=== PATIENT | female | born 1970 | race Caucasian/White ===

== ENCOUNTER 2025-11-07 00:54 | Emergency (ER) | payer OTHER, SELFPAY ==
[2025-11-07 00:57] VITALS: PULSE 84; O2SAT 96; BMI 26.3
[2025-11-07 01:03] VITALS: BP 165/90; TEMP 36.6
--- NOTE | 2025-11-07 01:08 | ED.GENADUL1 ---
HPI HPI - General Adult General Chief complaint: Shortness of Breath/Dyspnea Stated complaint: SHORTNESS OF BREATH Time Seen by Provider: 11/07/25 01:04 Source: patient Mode of arrival: walk-in History of Present Illness HPI narrative: sensation of fullness in her throat. Able to drink H20 and states this makes it feel better. Not short of breath and her lungs feel normal. Points to her neck and states the sensation is here. Similar episodes in the past. No sore throat or chest pain No fever Related Data Home Medications ?Medication ?Instructions ?Recorded ?Confirmed estradiol 0.025 mg/24 hr weekly 11/07/25 transdermal patch ferrous sulfate 325 mg (65 mg mg 11/07/25 iron) tablet (FeroSul) losartan 25 mg tablet mg 11/07/25 metoprolol succinate 50 mg mg PO 11/07/25 tablet,extended release 24 hr Allergies Allergy/AdvReac Type Severity Reaction Status Date / Time No Known Drug Allergies Allergy Verified 11/07/25 01:01 Review of Systems ROS Status of ROS 10 or more systems reviewed and unremarkable except as noted in history and below PFSH PFSH Social History Little interest or pleasure in doing things: not at all Feeling down, depressed, or hopeless: not at all Exam Constitutional Vital Signs, click to edit/add: Last Vital Signs Temp 97.8 F 11/07/25 01:03 Pulse 84 11/07/25 00:57 Resp 16 11/07/25 00:57 BP 165/90 H 11/07/25 01:03 Pulse Ox 96 11/07/25 00:57 O2 Del Method Room Air 11/07/25 00:57 Common normals: no apparent distress, average body habitus, oriented x3, no limitations, healthy appearing, alert and well nourished [facility] Common normals: normocephalic and head/scalp atraumatic Neck & C-Spine Common normals: full ROM Other: neg stridor Respiratory Common normals: normal respiratory effort, no retractions, no use of accessory muscles and clear to auscultation bilaterally Cardio Common normals: regular rate, regular rhythm, S1 normal heart sound and S2 normal heart sound GI Common normals: Normal to inspection, nondistended, normoactive bowel sounds present, soft to palpation and non-tender Extremity Common normals: normal to inspection and full ROM Neuro Common normals: oriented x3, CN's II-XII intact bilaterally, moves all extremities and no focal motor deficits Psych Appearance: grossly normal Course Vital Signs Vital signs: Vital Signs Pulse Rate 84 11/07/25 00:57 Respiratory Rate 16 11/07/25 00:57 Pulse Oximetry 96 11/07/25 00:57 Oxygen Delivery Method Room Air 11/07/25 00:57 Temperature 97.8 F 11/07/25 01:03 Pulse Rate 84 11/07/25 00:57 Respiratory Rate 16 11/07/25 00:57 Blood Pressure 165/90 H 11/07/25 01:03 Pulse Oximetry 96 11/07/25 00:57 Oxygen Delivery Method Room Air 11/07/25 00:57 Medical Decision Making MDM Narrative Medical decision making narrative: patient presents with a sensation that there is a fullness in her throat and that it is closing off. states feels like she can't swallow but she is easily able to drink H20 while I observed and states it makes it feel better. Oral pharynx is normal. cxray and soft tissue xray per my review are WNL. Patient continued to complain of a sensation of fullness or swelling in her throat. CT soft tissue neck neg as well. Patient reasurred. Not certain of cause of her symptoms but could be anxiety. Advised to follow up with her doctor to continue her workup Lab Data Labs: Lab Results 11/07/25 Range/Units 01:15 WBC 8.4 (4.0-11.0) 10^3/uL RBC 4.10 L (4.20-5.40) 10^6/uL Hgb 14.5 (12.0-16.0) g/dL Hct 41.0 (36.0-48.0) % MCV 100.0 H (81.0-99.0) fL MCH 35.4 H (26.7-34.0) pg MCHC 35.4 H (29.9-35.2) g/dL RDW 11.5 (11.0-15.0) % Plt Count 228 (150-450) 10^3/uL MPV 9.7 (9.5-13.5) fL Neut % (Auto) 29.1 L (43.0-75.0) % Lymph % (Auto) 58.3 (20.5-60.0) % Craig % (Auto) 7.4 (1.7-12.0) % Eos % (Auto) 4.4 (0.9-7.0) % Baso % (Auto) 0.7 (0.2-2.0) % Neut # (Auto) 2.5 (1.4-6.5) 10^3/uL Lymph # (Auto) 4.9 H (1.2-3.8) 10^3/uL Craig # (Auto) 0.6 (0.3-0.8) 10^3/uL Eos # (Auto) 0.4 (0.0-0.7) 10^3/uL Baso # (Auto) 0.1 (0.0-0.1) 10^3/uL Abs Immat Gran (auto) 0.01 (0.00-0.03) 10^3/uL Imm/Tot Granulo (auto) 0.1 (0.0-0.5) % Sodium 142 (136-145) mmol/L Potassium 3.6 (3.5-5.1) mmol/L Chloride 105 (98-107) mmol/L Carbon Dioxide 27.4 (21.0-32.0) mmol/L Anion Gap 13.2 BUN 15.0 (7.0-18.0) mg/dL Creatinine 1.00 (0.55-1.02) mg/dL Est GFR ( Amer) >60 (>=60 mL/min/1.73m^2) Est GFR (Non-Af Amer) 57 L (>=60 mL/min/1.73m^2) BUN/Creatinine Ratio 15.0 Glucose 124 H (74-106) mg/dL Calcium 10.0 (8.5-10.1) mg/dL Troponin I High Sens 6.1 (4.0-51.3) pg/mL Discharge Plan Discharge Chief Complaint: Shortness of Breath/Dyspnea Clinical Impression: Globus sensation Patient Disposition: Home, Self-Care Prescriptions / Home Meds: No Action metoprolol succinate 50 mg tablet extended release 24 hr PO estradiol 0.025 mg/24 hr patch weekly ferrous sulfate [FeroSul] 325 mg (65 mg iron) tablet losartan 25 mg tablet Print Language: Yoruba Instructions: Anxiety (ED) Additional Instructions: follow up with your doctor this week for recheck Referrals: Jasmin Cespedes MD [Primary Care Provider] - 1 week
--- NOTE | 2025-11-07 01:11 | XR_ITS ---
The [address] [address] Patient Name: RUSLAN FARAH MRN: [id number] date: 1970 Sex: F Assigned Patient Location: ED.MAIN Current Patient Location: Accession/Order Number: [id number] Exam Date: 11/07/2025 01:25 Report Date: 11/07/2025 08:10 At the request of: MARKY KAUR MD Procedure: XR chest 1V XR chest 1V 11/07/2025 1:30 AM SIGNS AND SYMPTOMS: ^short of breath PROTOCOL: Frontal radiograph of the chest COMPARISON: None FINDINGS: The trachea is midline. The heart and mediastinal structures are within normal limits. There is a 1.2 cm nodular opacity in the right upper lobe. The lung parenchyma is clear otherwise. The bony thorax is intact. Degenerative changes are noted in the thoracic spine. XR/XR chest 1V IMPRESSION: There is a 1.2 cm nodular opacity in the right upper lobe. Follow-up with contrast-enhanced CT of the chest is recommended. The lung parenchyma is clear otherwise. Impression dictated by: Luis Alberto Lane M.D. 11/07/2025 8:10 AM Dictation Location: [place] [address] Electronically authenticated by: [id number] Y Date: 11/07/2025 08:10
--- NOTE | 2025-11-07 01:11 | XR_ITS ---
The [address] [address] Patient Name: RUSLAN FARAH MRN: [id number] date: 1970 Sex: F Assigned Patient Location: ED.MAIN Current Patient Location: Accession/Order Number: [id number] Exam Date: 11/07/2025 01:25 Report Date: 11/07/2025 08:09 At the request of: MARKY KAUR MD Procedure: XR soft tissue neck XR soft tissue neck 11/07/2025 1:31 AM SIGNS AND SYMPTOMS: ^fullness sensation PROTOCOLS: Frontal and lateral radiograph soft tissues of the neck COMPARISON: None FINDINGS: The bones are in anatomic alignment. There is preservation of the vertebral body heights and intervertebral disc spaces. There is no fracture or destructive lesion. The nasopharyngeal, oropharyngeal, hypopharyngeal, glottic, and visualized subglottic airways are within normal limits. No radiopaque foreign body. XR/XR soft tissue neck IMPRESSION: Normal soft tissues of the neck. Impression dictated by: Luis Alberto Lane M.D. 11/07/2025 8:09 AM Dictation Location: [place] [address] Electronically authenticated by: [id number] Y Date: 11/07/2025 08:09
[2025-11-07 01:21] LABS: Hematocrit 41.0 % (36.0-48.0); Hemoglobin 14.5 g/dL (12.0-16.0); Immature Granulocytes Abs Auto 0.01 10^3/uL (0.00-0.03); Immature Granulocytes Pct Auto 0.1 % (0.0-0.5); Lymphocytes Absolute Auto 4.9 10^3/uL (1.2-3.8); Mean Corpuscular HGB Conc 35.4 g/dL (29.9-35.2); Mean Corpuscular Hemoglobin 35.4 pg (26.7-34.0); Mean Corpuscular Volume 100.0 fL (81.0-99.0); Platelet Count 228 10^3/uL (150-450); Red Blood Count 4.10 10^6/uL (4.20-5.40); White Blood Count 8.4 10^3/uL (4.0-11.0)
[2025-11-07 01:38] LABS: Anion Gap 13.2; Blood Urea Nitrogen 15.0 mg/dL (7.0-18.0); Calcium 10.0 mg/dL (8.5-10.1); Carbon Dioxide 27.4 mmol/L (21.0-32.0); Chloride 105 mmol/L (98-107); Estimated GFR (African America >60 (>=60 mL/min/1.73m^2); Estimated GFR (Non-African Ame 57 (>=60 mL/min/1.73m^2); Glucose 124 mg/dL (74-106); Potassium 3.6 mmol/L (3.5-5.1); Sodium 142 mmol/L (136-145)
--- OUTSIDE RECORDS SUMMARY | 2025-11-07 01:53 | XMS_ITS | Clinical Summary ---
Author Organization [facility] Address [address] [place], [place] [address] Care Team Providers Care Brass Finisher Name Role Phone Jasmin Cespedes MD Primary Care Provider [phone] Allergies No known active allergies Medications MedicationSigDispense QuantityRefillsLast FilledStart DateEnd DateStatus metoprolol succinate ER (TOPROL XL) 25 mg 24 hr tablet Take 25 mg by mouth.04/05/2020Active omega-3 acid ethyl esters (LOVAZA) 1 gram capsule Take 3,000 mg by mouth.Active Magnesium Oxide 500 mg cap Take by mouth.Active calcium carbonate (CALTRATE) 600 mg calcium (1,500 mg) tab Take 1 tablet by mouth.Active cyanocobalamin (VITAMIN B-12) 1,000 mcg tab Take 1,000 mcg by mouth.Active glucosamine/msm/chondroitin A (VRLMURDJXAO-WSGQQI-WII ORAL) Take by mouth.Active Cod Liver Oil oil Take by mouth.Active niacin (NIACIN) 100 mg tablet Take by mouth.Active Active Problems No known active problems Social History Tobacco UseTypesPacks/DayYears UsedDateSmoking Tobacco: Every DayCigarettes Smokeless Tobacco: CurrentPHQ-2AnswerDate RecordedPHQ-2 [id number] Deprivation IndexAnswerDate RecordedNational Score (1-100), lower number is lower riskNot on file11/05/2020State Score (1-10), lower number is lower riskNot on file11/05/2020Data from: https://www.neighborhoodatlas.medicine.[facility].edu/. Last address used for calculationNot on file11/05/2020CommentsNoSex and Gender InformationValueDate RecordedSex Assigned at BirthNot on fileLegal Sex Dsctpz6306/27/2019 4:45 PM EDTGender IdentityNot on fileSexual OrientationNot on file Last Filed Vital Signs Vital SignReadingTime TakenCommentsBlood Oeffzyqi057/57004/30/2020 10:41 AM EDT Xpizs7726/01/2020 10:41 AM SLUNgjyjjspgpn98.2 ??C (97.1 ??F)04/30/2020 10:41 AM EDTRespiratory Vqgg415704/30/2020 10:41 AM EDTOxygen Feudwipgqn58%04/30/2020 10:41 AM EDTInhaled Oxygen Concentration--Vvveax47.2 kg (141 lb 9.6 oz)04/30/2020 10:41 AM HKDNrkaxu708.3 cm (5' 0.35 )04/30/2020 10:41 AM EDTBody Mass Index27.33 04/30/2020 10:41 AM EDT Plan of Treatment Health MaintenanceDue DateLast DoneCommentsAnxiety Zqicvilol61/19/1987Depression Yeptweeli22/19/1987HIV Eoftatprp86/19/1987DTaP,Tdap,Td Vaccine (1 - Tdap) 1988Hepatitis B Vaccine (1 of 3 - 19+ 3-dose series)1988Cervical Cancer Ixssitdxd64/19/1990Mammogram Fyogfeern14/19/2009CT Unealujugqne66/19/2014 Cologuard (FIT-DNA)01/18/20144690Dqydesxnqhw55/19/2014Colorectal Cancer Screening 2014Fecal Occult Blood01/18/20142688Aejhaynbtsgcf64/19/2014Pneumococcal Vaccine: 50+ (1 of 1 - PCV)2019Shingrix Vaccine (1 of 2)2019Diabetes Thudsmkfh33, 03/29/2020, 03/29/2020, Additional history exists Lipid Bhapzejwz00Covid-19 Vaccine (1 - 2024- season) 2025Influenza Vaccine (#1)2025Hepatitis C ScreeningCompleted 04/13/2020 Procedures Procedure NamePriorityDate/TimeAssociated DiagnosisCommentsHEP REMOTE PANEL BL Gecxszv83/ 11:45 AM EDT Elevated blood protein COMPREHENSIVE METABOLIC BOHYVQxusxdi77/15/2020 11:45 AM EDT Elevated blood protein from Last 3 Months or Most Recently Relevant to Health Maintenance Results * (ABNORMAL) HEP REMOTE PANEL BL (04/13/2020 11:45 AM EDT)ComponentValueRef RangeTest MethodAnalysis TimePerformed AtPathologist SignatureHep B Core Ab, CxwseQtkuwetsNsszehlt06/16/2020 11:25 AM [facility]TCWex[facility] LaboratoriesHep C Antibody BJDvsjiuofQyshgrmh69/16/2020 11:27 AM EDTCWexner [facility] Center AwsmqczzehvvBLqAkMzntnpwiUehbhfsn72/16/2020 11:25 AM EDTCWexner Medical Center LaboratoriesHep B Surface Ab, QualPositive(A)Trygjkvx34/16/2020 11:26 AM EDT [facility] LaboratoriesComment: These results are consistent with previous exposure and/or immunity to the hepatitis B virus antigen. Specimen (Source)Anatomical Location / LateralityCollection Method / Volume Collection TimeReceived TimeBlood specimen (specimen)BLOOD SPECIMEN / Unknown 04/13/2020 11:45 AM EDT04/13/2020 11:47 AM EDT Narrative Authorizing ProviderResult TypeResult StatusGuerrero Weiss MDLABORATORYFinal ResultPerforming OrganizationAddressCity/State/ZIP CodePhone Number [facility] [address] [place] [address] [facility] [address] [place] [address] * (ABNORMAL) COMP METABOLIC PANEL (04/13/2020 11:45 AM EDT)ComponentValueRef RangeTest MethodAnalysis TimePerformed AtPathologist SignatureProtein, Total 7.86.3 - 8.0 g/dL04/13/2020 1:41 PM EDTCMadison Health Cancer CareAlbumin5.3(H)3.9 - 4.9 g/dL04/13/2020 1:41 PM EDTCMadison Health Cancer XejeRnzhjgw15.18.5 - 10.2 mg/dL04/13/2020 1:41 PM EDTCMadison Health Cancer CareBilirubin, Total0.40.2 - 1.3 mg/dL04/13/2020 1:41 PM [facility] CareAlkaline Apraedhcglr7875 - 123 U/L04/13/2020 1:41 PM [facility] TycoYRK3649 - 35 U/L04/13/2020 1:41 PM [facility] AdnxHzmnvwv054 (H)74 - 99 mg/dL04/13/2020 1:41 PM [facility] Comment: The [place] Diabetes Association (ADA) provides guidance for cutoff values for fasting glucose and random glucose. The ADA defines fasting as no caloric intake for at least 8 hours. Fasting plasma glucose results between 100 to 125 mg/dL indicate increased risk for diabetes (prediabetes). Fasting plasma glucose results greater than or equal to 126 mg/dL meet the criteria for diagnosis of diabetes. In the absence of unequivocal hyperglycemia, results should be confirmed by repeat testing. In a patient with classic symptoms of hyperglycemia or hyperglycemic crisis, random plasma glucose results greater than or equal to 200 mg/dL meet the criteria for diagnosis of diabetes. Reference: Standards of Medical Care in Diabetes 2016, [place] [employer]. Diabetes Care. 2016.39(Suppl 1). NZL062 - 21 mg/dL04/13/2020 1:41 PM [facility] Creatinine0.610.58 - 0.96 mg/dL04/13/2020 1:41 PM [facility] CystGeazxq034926 - 144 mmol/L04/13/2020 1:41 PM [facility] CarePotassium3.83.7 - 5.1 mmol/L04/13/2020 1:41 PM EDT [facility] MfrlDioemcij65589 - 105 mmol/L04/13/2020 1:41 PM [facility] DanrLQ39880 - 30 mmol/L04/13/2020 1:41 PM [facility] CareAnion Gis355 - 18 mmol/L 04/13/2020 1:41 PM [facility] QnhsKVN48(H)7 - 38 U/L 04/13/2020 1:41 PM [facility] CareeGFR->6005 1:41 PM EDMer[facility] Cancer CareeGFR- All Other Races>60.04/13/2020 1:41 PM [facility] CareComment: eGFR (Estimated GFR) Units of measure: mL/min/1.73 meters squared eGFR is derived from the reexpressed MDRD Study equation using the following parameters: serum creatinine, age, gender and race. The creatinine assay has been calibrated to be traceable to IDMS. An eGFR <60 mL/min/1.73m2 for >3 months is consistent with chronic kidney disease. Refer to KDOQI guidelines for clinical interpretation. In patients with unstable renal function, e.g. those with acute kidney injury, the eGFR may not accurately reflect actual GFR. Specimen (Source)Anatomical Location / LateralityCollection Method / Volume Collection TimeReceived TimeBlood specimen (specimen)BLOOD SPECIMEN / Unknown 04/13/2020 11:45 AM EDT04/13/2020 11:47 AM EDT Narrative Authorizing ProviderResult TypeResult StatusGuerrero Weiss MDLABORATORYFinal ResultPerforming OrganizationAddressCity/State/ZIP CodePhone Number [facility] [address] [address] [facility] [address] from Last 3 Months or Most Recently Relevant to Health Maintenance Care Teams Team MemberRelationshipSpecialtyStart DateEnd Date Jasmin Cespedes MD [address] [place] [address] PCP - GeneralFamily Medicine04/09/20
--- OUTSIDE RECORDS SUMMARY | 2025-11-07 01:53 | XMS_ITS | Clinical Summary ---
Author Organization [facility] Address [address], [address] [place] [address] Care Team Providers Care Senior Maintenance Technician Name Role Phone Jasmin Cespedes MD Primary Care Provider [phone] Allergies Active AllergyReactionsCriticalityNoted DateCommentsLisinoprilOther (See Comments)Low11/05/2021 dizziness Medications MedicationSigDispense QuantityRefillsLast FilledStart DateEnd DateStatus Delano-3 Fatty Acids (FISH OIL) 1000 MG CAPS Take 3,000 mg by mouth dailyActive pravastatin (PRAVACHOL) 20 MG tablet Take 1 tablet by mouth daily 90 tablet ctive metoprolol succinate (TOPROL XL) 50 MG extended release tablet TAKE 1 TABLET BY MOUTH EVERY DAY 30 tablet ctive losartan (COZAAR) 25 MG tablet TAKE 1 TABLET BY MOUTH EVERY DAY 30 tablet ctive ferrous sulfate (IRON 325) 325 (65 Fe) MG tablet Take 1 tablet by mouth daily (with breakfast)5Active estradiol (CLIMARA) 0.025 MG/24HR Place 1 patch onto the skin once a weekActive Cholecalciferol 250 MCG (94039 UT) TABS Take 10,000 Units by mouth dailyActive albuterol sulfate HFA (PROVENTIL;VENTOLIN;PROAIR) 108 (90 Base) MCG/ACT inhaler Inhale 2 puffs into the lungs every 4 hours as ecvife6009/19/2024ctive Menaquinone-7 (VITAMIN K2) 100 MCG CAPS Take by mouth dailyActive Cyanocobalamin (B-12) 2500 MCG TABS Take by mouth dailyActive magnesium (MAGNESIUM-OXIDE) 250 MG TABS tablet Take 1 tablet by mouth dailyActive Active Problems ProblemNoted DateDiagnosed YxjzYyaunv14/23/2025HTN (hypertension)08/22/2025 Mwsusfijkbkorx68/02/2023Mixed upcmbdbtlbfgmg61/02/2023ge-related osteoporosis without current pathological yajbbcwv27/02/2023Family history of colon cancer 11/07/2019 Encounters DateTypeDepartmentCare TajcWtrrxqanczk35/23/2025 8:20 AM EDTOffice Visit [facility] [address] [place] [address] Jasmin Cespedes MD SOB (shortness of breath) (Primary Dx); Primary hypertension; Mixed hyperlipidemia; Other iron deficiency anemia; Age-related osteoporosis without current pathological kxwzenqu87/23/2025bstract [facility] [address] [place] [address] Jasmin Cespedes MD from Last 3 Months Immunizations ImmunizationAdministration DatesNext DueCOVID-19, Inactive, PFIZER PURPLE top, DILUTE for use, (age 12 y+)03/08/2021,02/15/2021Influenza A (J7P3-31) Vaccine PF IM10/11/2009 Family History Medical HistoryRelationNameCommentsCancerBrother 3Colon CancerCancerFatherlung Heart DiseaseFatherCancerMaternal AuntbreastHeart AttackMaternal AuntCancer Maternal Cousinbreast CACancerMotherskinHeart DiseaseMotherHigh Blood Pressure MotherOtherMothernon alcoholic cirrhosis -- fatty liverRelationNameStatus CommentsBrother 1AliveBrother 2AliveBrother 3AliveChildAliveFatherDeceased Maternal AuntDeceasedMaternal CousinDeceasedMaternal GrandfatherDeceasedMaternal GrandmotherDeceasedMotherAlivePaternal GrandfatherDeceasedPaternal Grandmother DeceasedSisterAlive Social History Tobacco UseTypesPacks/DayYears UsedDateSmoking Tobacco: FormerCigarettes0.32 09/30/2018 - 09/30/2020Smokeless Tobacco: NeverAlcohol UseStandard Drinks/Week CommentsNot Currently0 (1 standard drink = 0.6 oz pure alcohol)AUDIT-CAnswerDate RecordedFrequency of Alcohol ConsumptionMonthly or less09/20/2019Average Number of Drinks1 or 210Frequency of Binge WhqtakwpIkrwz33/22/2019Overall Financial Resource Strain (CARDIA)AnswerDate RecordedHow hard is it for you to pay for the very basics like food, housing, medical care, and heating?Not hard at all1PHQ-2AnswerDate RecordedPHQ-9 Total Uoqax837Housing Stability Vital SignAnswerDate RecordedIn the last 12 months, was there a time when you were not able to pay the mortgage or rent on time?No08/22/2025In the past 12 months, how many times have you moved where you were living? At any time in the past 12 months, were you homeless or living in a jail (including now)?No08/22/2025Hunger Vital SignAnswerDate RecordedWithin the past 12 months, you worried that your food would run out before you got the money to buymore.Never true08/22/2025Within the past 12 months, the food you bought just didn't last and you didn't have money to get more.Never true08/22/2025PRAPARE - TransportationAnswerDate RecordedIn the past 12 months, has lack of transportation kept you from medical appointments or from getting medications?No 08/22/2025In the past 12 months, has lack of transportation kept you from meetings, work, or from getting things needed for daily living?08/22/2025HC UtilitiesAnswerDate RecordedIn the past 12 months has the [employer], gas, oil, or water company threatened to shut off services in your home?08/22/2025 CommentsNoSex and Gender InformationValueDate RecordedSex Assigned at BirthNot on fileLegal AkhHnlxht73/10/2013 12:04 PM ESTGender IdentityNot on fileSexual OrientationNot on file Last Filed Vital Signs Vital SignReadingTime TakenCommentsBlood Kitltdeq842/70008/22/2025 9:19 AM EDT Home reading cowicJrtif8911/23/2025 8:24 AM NZMNalorxjvsho11.9 ??C (98.5 ??F) 10/31/2021 7:34 AM ESTRespiratory Ouow378301/13/2021 10:56 AM ESTOxygen Saturation 97%08/22/2025 8:24 AM EDTInhaled Oxygen Concentration--Lpdwma74.1 kg (137 lb) 08/22/2025 8:24 AM KHKZfowhe027.4 cm (5')08/22/2025 8:24 AM EDTBody Mass Index 26.76008/22/2025 8:24 AM EDT Plan of Treatment DateTypeDepartmentCare Team (Latest Contact Info)Gkaebztcqgw16/12/2026 8:00 AM ESTOffice Visit [facility] [address] [place] [address] Jasmin Cespedes MD [address] [place] [address] 5 months (around 01/22/2026) for ck up .Health MaintenanceDue DateLast Done CommentsHIV snmbmo6901/18/1984Hepatitis C aglagk5601/18/1987DTaP/Tdap/Td vaccine (1 - Tdap)1988Hepatitis B vaccine (1 of 3 - 19+ 3-dose series)1988 FIT/FOBT: Average risk2014Fecal-DNA (Cologuard): Average risk2014 Sigmoidoscopy/CT prvamokuavyi36/19/2014Pneumococcal 50+ years Vaccine (1 of 1 - PCV)2019Shingles vaccine (1 of 2)2019A1C test (Diabetic or Prediabetic)2112/20/2020, 10/16/2020, 03/29/20201581Ikamev89/21/2022 10/20/2021, 04/09/2021, 08/23/2020, Additional history existsFlu vaccine (#1) 511/10/2009COVID-19 Vaccine ( - 2024- season)504/07/2021, 02/15/2021epression Njbtmc52609/, 5Breast cancer screen /, 02/26/2024, 08/15/2022, Additional history exists Mnaxnbiascc08/09/202912/07/2019Colorectal Cancer Islxzj0111/07/2029Hepatitis A vaccineAged OutNo longer eligible based on patient's age to complete this topic Hib vaccineAged OutNo longer eligible based on patient's age to complete this topicMeningococcal (ACWY) vaccineAged OutNo longer eligible based on patient's age to complete this topicMeningococcal B vaccineAged OutNo longer eligible based on patient's age to complete this topicPolio vaccineAged OutNo longer eligible based on patient's age to complete this topic Procedures Procedure NamePriorityDate/TimeAssociated DiagnosisCommentsLIPID PANELRoutine 10/20/2021 8:46 AM EST Essential hypertension Hyperglycemia HEMOGLOBIN T1QEtfhlcu30/21/2021 8:46 AM EST Pure hypercholesterolemia KARL DIGITAL SCREEN W OR WO CAD ZIANKEWJADcthhqb19/11/2019 8:55 AM EST Visit for screening mammogram from Last 3 Months or Most Recently Relevant to Health Maintenance Results * Hemoglobin A1C (10/20/2021 8:46 AM EST)ComponentValueRef RangeTest Method Analysis TimePerformed AtPathologist SignatureHemoglobin A1C6.04.0 - 6.0 % 10/20/2021 8:46 AM ESTMERCY LABORATORIESEstimated Avg Lwxqdcu001wz/dL 10/20/2021 8:46 AM ESTMERCY LABORATORIESComment: The ADA and AACC recommend providing the estimated average glucose result to permit better patient understanding of their HBA1c result. Specimen (Source)Anatomical Location / LateralityCollection Method / Volume Collection TimeReceived TimeBLOOD SPECIMEN / Aeccklt6010/20/2021 8:46 AM EST 10/20/2021 8:47 AM EST Narrative Authorizing ProviderResult TypeResult StatusNandaiana Cespedes MDCHEMISTRY ORDERABLESFinal ResultPerforming OrganizationAddressCity/State/ZIP CodePhone Number [facility] [address] [place] [address], [facility] [phone] [employer] [address] [place] [address], [facility] [phone] * (ABNORMAL) Lipid Panel (10/20/2021 8:46 AM EST)ComponentValueRef RangeTest MethodAnalysis TimePerformed AtPathologist DwvqczhdpModgrmexncc285<200 mg/dL 10/20/2021 8:46 AM ESTMERCY LABORATORIESComment: Cholesterol Guidelines: <200 Desirable 200-240 ??Borderline >240 Undesirable HDL50>40 mg/dL10/20/2021 8:46 AM ESTMERCY LABORATORIESComment: HDL Guidelines: <40 Undesirable 40-59 ?Borderline >59 Desirable LDL Ucenchgpovq8599 - 130 mg/dL10/20/2021 8:46 AM ESTMERCY LABORATORIESComment: LDL Guidelines: <100 Desirable 100-129 ?? Near to/above Desirable 130-159 ?? Borderline >159 Undesirable Direct (measured) LDL and calculated LDL are not interchangeable tests. Chol/HDL Ratio3.7<511 8:46 AM ESTMERCY LABORATORIESComment:Triglycerides 152(H)<150 mg/dL10/20/2021 8:46 AM ESTMERCY LABORATORIESComment: Triglyceride Guidelines: <150 Desirable 150-199 ??Borderline 200-499 ??High >499 Very high Based on AHA Guidelines for fasting triglyceride, August 2012. VLDLNOT REPORTED1 - 30 mg/dL10/20/2021 8:46 AM ESTMERCY LABORATORIESSpecimen (Source)Anatomical Location / LateralityCollection Method / VolumeCollection TimeReceived TimeBLOOD SPECIMEN / Krbtunm6310/20/2021 8:46 AM EST10/20/2021 8:47 AM EST Narrative Authorizing ProviderResult TypeResult StatusNancy Fernando Cespedes MDCHEMISTRY ORDERABLESFinal ResultPerforming OrganizationAddressCity/State/ZIP CodePhone Number [facility] [address] [place] [address], [facility] [phone] [employer] [address] [place] [address], [facility] [phone] * KARL DIGITAL SCREEN W CAD BILATERAL (10/10/2019 8:55 AM EST)Anatomical Region LateralityModalityBreastBilateralMammographySpecimen (Source)Anatomical Location / LateralityCollection Method / VolumeCollection TimeReceived Time 10/10/2019 9:07 AM EST Impressions 10/20/2019 10:01 AM EST BI-RADS 2 - Benign, no evidence of malignancy. Normal interval followup is recommended in 12 months. OVERALL ASSESSMENT- BENIGN A letter of notification will be sent to the patient regarding the results. Narrative 10/20/2019 10:01 AM EST HISTORY: Screening. TECHNIQUE: Bilateral digital screening mammogram with CAD. FINDINGS: Two views of each breast show scattered areas of fibroglandular density. Upper-outer quadrant left breast biopsy clip. No change from prior studies, most recent of 11/16/2017. Suspicious calcifications: None. Suspicious mass: None. Benign calcifications: Scattered, bilateral. (If skin markers were applied, circles represent skin lesions and linear markers represent scars.) Procedure Note Bart Perez Jr., MD - 10/20/2019 HISTORY: Screening. TECHNIQUE: Bilateral digital screening mammogram with CAD. FINDINGS: Two views of each breast show scattered areas of fibroglandular density. Upper-outer quadrant left breast biopsy clip. No change from prior studies, most recent of 11/16/2017. Suspicious calcifications: None. Suspicious mass: None. Benign calcifications: Scattered, bilateral. (If skin markers were applied, circles represent skin lesions and linear markers represent scars.) IMPRESSION: BI-RADS 2 - Benign, no evidence of malignancy. Normal interval followup is recommended in 12 months. OVERALL ASSESSMENT- BENIGN A letter of notification will be sent to the patient regarding theresults. Authorizing ProviderResult TypeResult StatusNancy Fernando DIAZ MAMMOGRAPHY ORDERABLESFinal Result from Last 3 Months or Most Recently Relevant to Health Maintenance Insurance Advance Directives * Full Code (Latest Code Status on File) Date ActivatedDate NgbaelbtiknKcmxqlfo23/9/2019 8:32 AM11/07/2019 1:56 PM Care Teams Team MemberRelationshipSpecialtyStart DateEnd Date Jasmin Cespedes MD [address] [place], [place] [id number] PCP - GeneralFamily Cvvlgwht42/22/19
--- OUTSIDE RECORDS SUMMARY | 2025-11-07 01:53 | XMS_ITS | Clinical Summary ---
Author Organization [facility] Address [address] [place] [address] Care Team Providers Care Simulation Developer Name Role Phone Jasmin Cespedes MD Primary Care Provider [phone] Allergies Active AllergyReactionsCriticalityNoted GwkhSlcgheiqTcjbdjwlmbKpz67/07/2021 Other Reaction(s): Other (See Comments) dizziness Medications MedicationSigDispense QuantityRefillsLast FilledStart DateEnd DateStatus cholecalciferol (Vitamin D-3) 250 MCG (97640 UT) tablet Take 10,000 Units by mouth in the morning.Active pravastatin (Pravachol) 20 MG tablet Indications:Mixed hyperlipidemiaTake 1 tablet (20 mg) by mouth in the evening 90 tablet ctive metoprolol succinate XL (Toprol-XL) 50 MG 24 hr tablet Indications:Primary hypertensionTake 1 tablet (50 mg) by mouth Daily Do not crush or chew. 90 tablet ctive albuterol HFA 90 mcg/act inhaler Indications:Simple chronic bronchitis (HCC)Inhale 2 puffs every 4 (four) hours if needed for wheezing or shortness of breath 18 g 09/19/2024ctive Spacer/Aero-Holding Chambers (BreatheRite Hortencia Spacer Adult) misc Indications:Simple chronic bronchitis (HCC)2 puffs 4 (four) times a day as needed (sob and cough) 1 each 09/19/2024ctive estradiol (Climara) 0.025 MG/24HR Indications:Surgical menopausePlace 1 patch over 7 days on the skin 1 (one) time per week 12 patch 10/03/2024ctive losartan (Cozaar) 25 MG tablet Take 25 mg by mouth Daily01/17/2025tive Active Problems ProblemNoted DateDiagnosed FrqzDfzelxotjfbjb91/13/2024re-fvasvwsf13/17/2024ge- related osteoporosis without current pathological anfkbjfc80/02/2023 Ckahhjiwdoajog48/02/2023Hx of onzytkyphlzp60/02/2023Mixed hyperlipidemia 07/01/2023Osteopenia determined by x-ray07/01/2023Overweight (BMI 25.0-29.9) 07/01/2023rimary iluqcnfgdrcl78/02/2023Surgical /02/2023Varicose veins of both lower diomtsgnttm73/02/2023 Immunizations ImmunizationAdministration DatesNext DueNovel qpememzsh-Z0A7-58, preservative-free10/11/2009 Family History Medical HistoryRelationNameCommentsHeart diseaseFatherHypertensionFatherLung cancerFatherHeart diseaseMotherHypertensionMotherLiver diseaseMotherRelationName VahbwgMrvqxrjsKjblznzq4KmwrbbnbSxiwmDoywqjViimehrwJvmmyoKgtor Social History Tobacco UseTypesPacks/DayYears UsedDateSmoking Tobacco: FormerCigarettesPassive Smoke Exposure: PastSmokeless Tobacco: Never Tobacco Cessation:Counseling Given: Yes Alcohol UseStandard Drinks/WeekCommentsYes2 (1 standard drink = 0.6 oz pure alcohol)PHQ-2AnswerDate RecordedPatient Health Questionnaire-2 Vtgde645 CommentsNoSex and Gender InformationValueDate RecordedSex Assigned at BirthNot on fileLegal BeoPkuwrg98/15/2023 6:39 PM EDTGender IdentityNot on file Sexual OrientationNot on file Last Filed Vital Signs Vital SignReadingTime TakenCommentsBlood Nejlpjkt252/801 8:00 AM EDT Jevgd176809/19/2024 8:00 AM EDTTemperature--Respiratory Rate--Oxygen Msxuedethy34% 09/19/2024 8:00 AM EDTInhaled Oxygen Concentration--Vsdtzj02.7 kg (136 lb) 10/03/2024 8:23 AM EACHpxzsi048.9 cm (4' 11 )10/03/2024 8:23 AM ESTBody Mass Index27.4711/02/2024 8:23 AM EST Plan of Treatment Health MaintenanceDue DateLast DoneCommentsCT Cwqaxeojdnat1969FIT-DNA 1969FIT1969FOBT1969 2088Hftvjztadawrr1969Pap Smear1990 Cervical Cancer Wjiodavky22/19/1999HPV/Pirvbn1601/18/1999COVID-19 Vaccine ( season)504/07/2021, 02/15/2021Influenza Vaccine (#1)2025 Kfpdkfkuw21/25/933359/, 02/26/2024, 08/15/2022, Additional history exists Uevervcfako52/09/202912/07/2019Colorectal Cancer Atlmljlfa39/09/2029Pneumococcal Vaccine: Pediatrics (0 to 5 Years) and At-Risk Patients (6 to 64 Years)Aged Out No longer eligible based on patient's age to complete this topic Procedures Procedure NamePriorityDate/TimeAssociated DiagnosisCommentsBI MAMMOGRAM SCREENING TOMOSYNTHESIS VIFEIVVFNXhvmceq84/25/2025 10:00 AM EDT Encounter for other screening for malignant neoplasm of breast Encounter for general adult medical examination without abnormal findings FOEQVGYVJBYLjdlzbc70/09/2019 12:00 PM EST from Last 3 Months or Most Recently Relevant to Health Maintenance Results * Bilateral screening mammogram with tomosynthesis (03/24/2025 10:00 AM EDT) Anatomical RegionLateralityModalityBreastBilateralMammographySpecimen (Source) Anatomical Location / LateralityCollection Method / VolumeCollection Time Received Time03/25/2025 12:44 PM EDT Impressions 03/25/2025 12:53 PM EDT Impression: No specific evidence of malignancy seen in either breast. BIRADS 2 - Benign Findings DENSITY: There are scattered areas of fibroglandular density. FOLLOW-UP: Routine Screening Mammogram ELECTRONICALLY SIGNED BY: All Pimentel M.D. Narrative 03/25/2025 12:53 PM EDT Examination: BI MAMMOGRAM SCREENING TOMOSYNTHESIS BILATERAL Clinical History: screening Technique: Screening digital mammography study of both breasts was performed with 2-D and 3-D tomosynthesis imaging. Study was compared to the prior exam dated 02/26/2024. Findings: There is no evidence of interval dominant spiculated mass, grouped microcalcifications, or skin thickening which would be suggestive of malignancy. ?? Scattered benign-appearing calcifications are seen on the right with mild scattered benign appearing calcifications on the left. Post biopsy clip is seen on the left similar to the prior study. Partially visualized axillary lymph node on the right appears grossly unremarkable. Small unremarkable appearing axillary lymph node suggested on the left. Procedure Note All Pimentel MD - 03/25/2025 Examination: BI MAMMOGRAM SCREENING TOMOSYNTHESIS BILATERAL Clinical History: screening Technique: Screening digital mammography study of both breasts wasperformed with 2-D and 3-D tomosynthesis imaging. Study was compared tothe prior exam dated 02/26/2024. Findings: There is no evidence of interval dominant spiculated mass,grouped microcalcifications, or skin thickening which would be suggestiveof malignancy. Scattered benign-appearing calcifications are seen on the right with mild scattered benign appearing calcifications on the left. Post biopsy clip isseen on the left similar to the prior study. Partially visualized axillarylymph node on the right appears grossly unremarkable. Small unremarkableappearing axillary lymph node suggested on the left. IMPRESSION: Impression: No specific evidence of malignancy seen in either breast. BIRADS 2 - Benign Findings DENSITY: There are scattered areas of fibroglandular density. FOLLOW-UP: Routine Screening Mammogram ELECTRONICALLY SIGNED BY: All Pimentel M.D. Authorizing ProviderResult TypeResult StatusElda Leslie NPIMG BI PROCEDURES Final Result * Colonoscopy (11/07/2019 12:00 PM EST)Anatomical RegionLateralityModality EndoscopySpecimen (Source)Anatomical Location / LateralityCollection Method / VolumeCollection TimeReceived Time11/07/2019 12:00 PM EST Narrative 11/07/2019 12:00 PM EST PERFORMED AT [facility] LOCATION:[id number] Procedure Note CONVERSION, GENERIC - 05/17/2023 PERFORMED AT [facility] LOCATION:[id number] Authorizing ProviderResult TypeResult StatusEdgiovanna Neil MDENDOSCOPY PROCEDURE ORDERABLESFinal Result from Last 3 Months or Most Recently Relevant to Health Maintenance Insurance Care Teams Team MemberRelationshipSpecialtyStart DateEnd Date Jasmin Cespedes MD [address] [place] [address] PCP - GeneralFamily Kptwxxrk36/21/25
== END 2025-11-07 06:51 | disposition home or self-care (01) ==
PROVIDERS: Emergency Provider Internal Medicine; PCP Family Medicine
DX: F45.8 Other somatoform disorders (principal); R91.1 Solitary pulmonary nodule
CPT/HCPCS: 36415; 70360; 70491; 71045; 80048; 84484; 85025; 99285; Q9967